=== PATIENT | female | born 1985 | race Caucasian/White ===

== ENCOUNTER 2019-01-22 09:13 | Outpatient (CLI) | payer OTHER ==
--- NOTE | 2019-01-22 12:58 | ULT ---
OB ULTRASOUND: HISTORY: Elderly in 2nd trimester. Evaluate size and dates. COMPARISON: None. TECHNIQUE: Sagittal and transverse imaging of a gravid uterus is performed. FINDINGS: Cervix is identified, measuring 6.0 cm. There are 2 intrauterine gestations. There appears to be a single placenta and a single amniotic sac , compatible with a monochorionic and monoamniotic . Amniotic fluid index is 15.7 cm. Twin A has heart tones with a rate of 150 b.p.m. Twin B has heart tones with a rate of 1 47 b.p.m. BIOMETRY: TWIN A: BPD 4.63 cm, 20 weeks 0 days Head circumference 17.70 cm, 20 weeks 2 days Abdominal circumference 14.79 cm, 20 weeks 1 day Femur length 3.38 cm, 20 weeks 5 days Average age by sonography is 20 weeks 2 days. Estimated weight is 344 gm. TWIN B: BPD 4.82 cm, 20 weeks 5 days Head circumference 18.40 cm, 20 weeks 6 days Abdominal circumference 16.45 cm, 21 weeks 4 day Femur length 3.38 cm, 20 weeks 5 days Average age by sonography is 21 weeks 0 days. Estimated weight is 395 gm. SURVEY: The following structures are adequately demonstrated. TWIN A: Lateral ventricle, cerebellum, bladder, cord insertion, 3-vessel cord, extremities, nose and lips. L imited evaluation of the 4-chamber heart, kidneys, stomach, and spine. TWIN B: Adequate demonstration of cerebellum, lateral ventricle, stomach, bladder, cord insertion, 3-vessel c ord, nose and lips. Limited evaluation of the 4-chamber heart, spine, extremities, and kidneys. IMPRESSION: 1. Monochorionic, monoamniotic twin gestation. heart tones in fetus A and B. 2. Average age by sonography of fetus A is 20 weeks 2 days. Average age by sonography of fetus B is 21 weeks 0 days. 3. survey as above. POS: [facility]
== END 2019-01-22 09:14 | disposition home or self-care (01) ==
LOC: BICULT 09:13
PROVIDERS: ATTEND Family Medicine
DX: O09.522 Supervision of elderly multigravida, second trimester (principal); Z3A.21 21 weeks gestation of pregnancy
CPT/HCPCS: 76810

== ENCOUNTER 2019-04-12 10:38 | Day surgery (SDC) | payer OTHER ==
[2019-04-12 12:31] VITALS: BMI 29.4
--- NOTE | 2019-04-12 12:34 | ULT ---
Obstetric sonogram twin Sonographic biophysical profile exam twin A Sonographic biophysical profile exam twin B Umbilical artery duplex exam twin A Umbilical artery duplex exam twin B HISTORY: Discordant twin size. FINDINGS: Twin A to the maternal right in breech presentation. Twin B in transverse presentation. Heart motion twin A 140 bpm. Heart motion twin B137 bpm. Grade 2 placenta is anterior. With each twin, good tone, breathing movements, and gross movements were demonstrated. Amniotic fluid index 13.3. Good color and spectral Doppler flow within each umbilical artery. Systolic/diastolic ratio associate d with twin A is 2.3-4.5. Associated with twin B is 2.4-3.2. With each twin, the measurements with elevated S/D ratios shows a significant decrease in the end-diastolic velocity. IMPRESSION: Twin intrauterine gestation. Sonographic biophysical profile score for each twin is 8/8. Systolic/diastolic ratios slightly increased, although ratio is affected by the decreased end diastol ic velocity values on the most extreme measurements.
--- NOTE | 2019-04-12 13:18 | PDOC.LDHP ---
Labor and Delivery H&P Chief complaint: other HPI: 34 y/o at 32w5d, patient of Dr. Todd, sent for BPP and umbilical artery dopplers. Denies VB, LOF, ctx or other complaints. +FM. ROS neg for HEENT, cv, pulm, gi, gu, neuro, psych, skin, musculoskeletal or constitutional symptoms other than mentioned above. OB History Details: 5 prior term SVDs Current complications: gestational diabetes, mono/di twins Past Medical History: None Current medications: pre-milena vitamins Previous surgical history: none Allergies/Adverse Reactions: Allergies Allergy/AdvReac Type Severity Reaction Status Date / Time No Known Drug Allergies Allergy Verified 10/10/15 04:32 Social history: none - Physical Exam Vital signs reviewed and normal: yes General: NAD, resting Lungs: nonlabored breathing Abdomen: gravid Extremeties: no edema FHT: category 1 [place] contractions every: none - Assessment 34 y/o at 32w5d with BPP 10/10, variable umbilical artery dopplers. Scheduled for MFM appointment on , Dr. Todd next week. - Plan -: D/c home with precautions. Advised to keep all appointments and MFM appointments.
--- NOTE | 2019-04-13 14:37 | ULT ---
Obstetric sonogram twin Sonographic biophysical profile exam twin A Sonographic biophysical profile exam twin B Umbilical artery duplex exam twin A Umbilical artery duplex exam twin B HISTORY: Discordant twin size. FINDINGS: Twin A to the maternal right in breech presentation. Twin B in transverse presentation. Heart motion twin A 140 bpm. Heart motion twin B137 bpm. Grade 2 placenta is anterior. With each twin, good tone, breathing movements, and gross movements were demonstrated. Amniotic fluid index 13.3. Good color and spectral Doppler flow within each umbilical artery. Systolic/diastolic ratio associate d with twin A is 2.3-4.5. Associated with twin B is 2.4-3.2. With each twin, the measurements with elevated S/D ratios shows a significant decrease in the end-diastolic velocity. IMPRESSION: Twin intrauterine gestation. Sonographic biophysical profile score for each twin is 8/8. Systolic/diastolic ratios slightly increased, although ratio is affected by the decreased end diastol ic velocity values on the most extreme measurements. Transcribed Date/Time: 04/13/2019 2:37 PM
== END 2019-04-12 13:20 | disposition home or self-care (01) ==
LOC: L&D/OP 10:38
PROVIDERS: ATTEND Family Medicine
DX: O30.033 Twin pregnancy, monochorionic/diamniotic, third trimester (principal); O24.419 Gestational diabetes mellitus in pregnancy, unspecified control; Z3A.32 32 weeks gestation of pregnancy
CPT/HCPCS: 76700; 76819; 99282

== ENCOUNTER 2019-05-03 13:47 | Day surgery (SDC) | payer MEDICAID ==
[2019-05-03 14:24] VITALS: BMI 35.7
[2019-05-03] MEDS ORDERED: hydrALAZINE 20 MG/ML VIAL SLOW IVP PRN (15:22)
--- NOTE | 2019-05-03 15:24 | PDOC.LDHP ---
Labor and Delivery H&P Chief complaint: other (Here for scheduled BPP per Dr Todd Indicaton: Twins at 35 weeks) HPI: Patient of Dr Todd, 34 yo at 35 weeks 5 days here for scheduled BPP per Dr Todd. No VB, no LOF, good FM x2. No fever, states good FM. Denies other issues. Review of Systems: Complete ROS performed and as per HPI Current gestational age (weeks): 35 (5 days) Due date: 06/02/19 Grav: 6 Para: 5 OB History Details: SVDs x 6 Current complications: other (Twins...no record here) Current medications: pre- vitamins Previous surgical history: none Allergies/Adverse Reactions: Allergies Allergy/AdvReac Type Severity Reaction Status Date / Time No Known Drug Allergies Allergy Verified 10/10/15 04:32 Social history: none - Physical Exam Vital signs reviewed and normal: yes (110/84 87 98.4) General: NAD Heart: RRR Lungs: CTAB Abdomen: gravid Extremeties: no edema FHT: category 1 (NST reactive x 2) [place] contractions every: no CTX - Assessment Twins at 35 weeks, here for scheduled BPP per Dr Todd - Plan Plan: other (NSTs reactive x2..disctinct FHTs x 2 noted; BPP 8 x 2...08/05 with NSTs. OK for continued outpatient care. No evidence of labor at this time.)
--- NOTE | 2019-05-03 15:44 | ULT ---
Exam: Twin ultrasound biophysical profile: Twin umbilical artery vascular duplex with color and spectral Doppler imaging: Twin A is in cephalic presentation. heart rate 139 bpm biophysical profile equals 8/8 Umbilical artery vascular duplex with color and spectral Doppler imaging: Proximal umbilical artery: Systolic/diastolic ratio equals 2.47 Mid umbilical artery: Systolic/diastolic ratio equals 2.45 Distal umbilical artery at placenta: Systolic/diastolic ratio equals 7.39 (elevated) Twin B breech presentation. heart rate 160 bpm biophysical profile equals 8/8 Umbilical artery vascular duplex with color and spectral Doppler imaging: Proximal umbilical artery: Systolic/diastolic ratio equals 2.26 Mid umbilical artery: Systolic/diastolic ratio equals 2.52 Distal umbilical artery near the placenta: Systolic/diastolic ratio equals 2.42 CODE T
== END 2019-05-03 16:06 | disposition home health service (06) ==
LOC: L&D/OP 13:47
PROVIDERS: ATTEND Family Medicine
DX: Z01.89 Encounter for other specified special examinations (principal); O32.1XX2 Maternal care for breech presentation, fetus 2; O30.003 Twin pregnancy, unspecified number of placenta and unspecified number of amniotic sacs, third trimester; Z3A.35 35 weeks gestation of pregnancy
CPT/HCPCS: 59025; 76700; 76819; 99282

== ENCOUNTER 2019-05-11 10:55 | Inpatient (IN) | payer MEDICAID, OTHER, SELFPAY ==
[2019-05-11] MEDS ORDERED: ePHEDrine 50 MG/ML VIAL ONE (11:08)
[2019-05-11] MEDS ORDERED: hydrALAZINE 20 MG/ML VIAL SLOW IVP PRN ×2 (11:17→18:06)
[2019-05-11] MEDS ORDERED: Bicitra 30 ML UDCUP PO SCH (11:17)
[2019-05-11] MEDS ORDERED: Ondansetron PF 4 MG/2 ML Vial IVP PRN ×3 (11:17→18:06)
[2019-05-11] MEDS ORDERED: Promethazine HCl 25 MG/ML VIAL IM PRN ×3 (11:17→18:06)
[2019-05-11] MEDS ORDERED: CEFAZOLIN 2 GM in Premix Bag 1 BAG IVPB SCH (11:17)
[2019-05-11] MEDS ORDERED: Azithromycin 500 MG in Sodium Chloride 0.9% 250 ML 250 ML IVPB SCH (11:17)
[2019-05-11 11:38] LABS: Hemoglobin 13.8 g/dL (12.0-16.0); Mean Corpuscular HGB CONC 34.7 g/dL (32.0-36.0); Mean Corpuscular Hemoglobin 31.4 pg (27.0-31.0); Mean Corpuscular Volume 90.4 fL (78.0-98.0); Mean Platelet Volume 9.3 fL (7.4-10.4); Platelet Count 169 thou/uL (130-400); Red Blood Cell (RBC) Count 4.39 mill/uL (4.20-5.40); White Blood Cell (WBC) Count 9.5 thou/uL (4.8-10.8)
[2019-05-11] MEDS: Lactated Ringer's 1,000 ML IV SCH ×2 (11:40→12:05)
[2019-05-11 12:04] VITALS: BMI 32.4
[2019-05-11] MEDS ORDERED: MORPHINE 5 MG/10 ML PF VIAL ONE (12:09)
[2019-05-11] MEDS ORDERED: ePHEDrine/0.9% NaCl/PF SYRINGE 50 mg/10 ml ONE (12:10)
[2019-05-11] MEDS ORDERED: Oxytocin 10 UNITS/ML VIAL ONE (12:10)
[2019-05-11] MEDS ORDERED: Methylergonovine 0.2 MG TAB ONE (12:14)
[2019-05-11] MEDS ORDERED: Methylergonovine 0.2 MG/ML VIAL ONE (12:14)
[2019-05-11] MEDS ORDERED: Misoprostol 200 MCG TAB ONE (12:14)
[2019-05-11] MEDS ORDERED: Carboprost 250 MCG/ML AMP ONE (12:15)
[2019-05-11 12:20] LABS: Syphilis Antibody Nonreactive (Nonreactive)
[2019-05-11 12:21] LABS: HBSAg Index 0.29 S/CO (0-0.99); Hep B Surf Ag Non-Reactive S/CO (NonReactive)
[2019-05-11] MEDS ORDERED: Meperidine HCl/PF 25 MG/ML VIAL SLOW IVP PRN (12:43)
[2019-05-11] MEDS ORDERED: L&D-Morphine 4 MG/ML VIAL SLOW IVP PRN (12:43)
[2019-05-11] MEDS ORDERED: diphenhydrAMINE 50 MG/ML VIAL IVP PRN (12:43)
[2019-05-11] MEDS ORDERED: Ketorolac Tromethamine 30 MG/ML VIAL IVP PRN (12:43)
[2019-05-11] MEDS ORDERED: Naloxone HCl 0.4 mg/ml Vial IV PRN (12:43)
[2019-05-11] MEDS ORDERED: Ondansetron HCl/PF 4 MG/2 ML Vial IVP PRN (12:43)
[2019-05-11] MEDS ORDERED: Naloxone HCl 0.4 mg/ml Vial IVP PRN ×2 (12:43)
[2019-05-11] MEDS ORDERED: Promethazine HCl 25 MG SUPP PR PRN (12:43)
[2019-05-11] MEDS ORDERED: HYDROmorphone 2 MG/ML VIAL SLOW IVP PRN (12:43)
[2019-05-11] MEDS ORDERED: Ketorolac Tromethamine 30 MG/ML VIAL IVP SCH (12:45)
[2019-05-11] MEDS ORDERED: Communication Order-Pharmacy FS SCH (12:45)
[2019-05-11] MEDS ORDERED: NS / Oxytocin 40 units/1000ml 1,000 ML ONE (14:36)
[2019-05-11] MEDS ORDERED: Meperidine HCl/PF 25 MG/ML VIAL ONE (14:38)
[2019-05-11] MEDS ORDERED: Ondansetron PF 4 MG/2 ML Vial ONE (14:52)
[2019-05-11] MEDS ORDERED: Promethazine HCl 25 MG/ML VIAL ONE (15:34)
[2019-05-11] MEDS ORDERED: Meperidine HCl/PF 25 MG/ML VIAL IM PRN (18:06)
[2019-05-11] MEDS ORDERED: Bisacodyl 10 MG SUPP PR PRN (18:06)
[2019-05-11] MEDS ORDERED: diphenhydrAMINE 25 MG CAP PO PRN (18:06)
[2019-05-11] MEDS ORDERED: NS / Oxytocin 40 units/1000ml 1,000 ML IV SCH (18:06)
[2019-05-11] MEDS ORDERED: Lanolin Ointment 7 GM TUBE TOP PRN (18:06)
[2019-05-12] MEDS: Lactated Ringer's 1,000 ML IV SCH (00:15)
[2019-05-12] MEDS: Ferrous Sulfate 325 MG TAB PO SCH ×2 (01:25→10:07)
[2019-05-12] MEDS: Docusate Calcium (SURFAK) 240 MG CAP PO SCH ×3 (01:25→20:58)
[2019-05-12] MEDS: Simethicone Chewable 80 MG TAB PO PRN ×2 (05:08→20:58)
[2019-05-12 05:55] LABS: Hemoglobin 10.9 g/dL (12.0-16.0); Mean Corpuscular HGB CONC 31.5 g/dL (32.0-36.0); Mean Corpuscular Hemoglobin 29.3 pg (27.0-31.0); Mean Corpuscular Volume 92.9 fL (78.0-98.0); Mean Platelet Volume 8.5 fL (7.4-10.4); Platelet Count 135 thou/uL (130-400); RBC Distribution Width 13.1 % (11.5-14.5); Red Blood Cell (RBC) Count 3.73 mill/uL (4.20-5.40); White Blood Cell (WBC) Count 10.3 thou/uL (4.8-10.8)
[2019-05-12] MEDS ORDERED: Adacel (T-DAP) 0.5 ML SYRINGE IM ONE (09:00)
[2019-05-12] MEDS: HYDROcodone/Acetaminophen 5/325 mg Tablet PO PRN ×2 (10:10→18:04)
[2019-05-12] MEDS: Prenatal Vitamin 1 TAB PO SCH (10:10)
[2019-05-12] MEDS: Ibuprofen 800 MG TAB PO SCH ×2 (13:34→20:58)
[2019-05-13] MEDS: HYDROcodone/Acetaminophen 5/325 mg Tablet PO PRN ×4 (00:16→18:36)
[2019-05-13] MEDS: Ferrous Sulfate 325 MG TAB PO SCH ×2 (02:48→10:15)
[2019-05-13] MEDS: Simethicone Chewable 80 MG TAB PO PRN (05:28)
[2019-05-13] MEDS: Ibuprofen 800 MG TAB PO SCH ×4 (05:28→21:34)
[2019-05-13] MEDS: Docusate Calcium (SURFAK) 240 MG CAP PO SCH ×2 (08:30→21:34)
[2019-05-13] MEDS: Prenatal Vitamin 1 TAB PO SCH (08:30)
[2019-05-14] MEDS: HYDROcodone/Acetaminophen 5/325 mg Tablet PO PRN ×4 (00:49→23:19)
--- NOTE | 2019-05-14 04:37 | DN ---
DATE OF PROCEDURE: 05/11/2019 RESIDENT: Franco Ren, PGY-3. PROCEDURE: Primary low-transverse for monochorionic diamniotic and dichorionic twins. PREOPERATIVE DIAGNOSES: 1. Term intrauterine twin . 2. monochorionic diamniotic and dichorionic twins. POSTOPERATIVE DIAGNOSES: 1. Term intrauterine twin . 2. monochorionic diamniotic and dichorionic twins. INDICATIONS: This patient is a 34-year-old, G6, P5 female at 36 and 6 weeks gestation who presented for primary scheduled due to concern for discordance and cord and growth in the twin infants. PROCEDURES IN DETAIL: After risks, benefits and alternatives explained to the patient, she gave informed consent. Preoperative antibiotics included cefazolin 2 g IV. The patient was taken to the operating room and spinal anesthesia was initiated, placed in supine position with the left tilt, and prepped and draped in usual sterile fashion. A Pfannenstiel incision was made with a scalpel and carried down to the level of the fascia, which was sharply nicked. The fascial cut was extended bilaterally with Reddy scissors. The inferior and superior edges of the cut fascia were elevated with Sophie clamps and underlying rectus muscles were sharply and bluntly dissected free. Recti were divided digitally and retracted manually. Peritoneum was entered bluntly and retracted manually. Nabil O retractor was placed. A low transverse score was made with the scalpel. The uterus was entered in the midline with the scalpel. Clear fluid was seen. Baby A girl was noted to be vertex, the hysterotomy was extended manually. was noted to be vertex and easily delivered by fundal pressure. Next Baby B girl was delivered. The baby was transverse initially, but then would become vertex after delivery of Baby A. Baby Girl B was easily delivered by fundal pressure. Mouth and nares were bulb suctioned. Cord clamped and cut, grossly normal female infants were handed to the waiting nurses. It was noted the cord of baby A was significantly smaller than the cord of baby B. Cord blood was obtained for both. Placenta was manually extracted, found to be intact with 2 three-vessel cords and would be sent off. The uterus was externalized. The endometrium was curetted with a dry lap. The uterus was closed with a running locking 0 Vicryl suture followed by a few figure of eight, 0 Vicryl sutures. Following this, hemostasis was noted. We also did another running nonlocking 0 Vicryl imbricating suture. Following this, hemostasis was noted. The abdomen was irrigated with saline and suctioned free of clots. The uterus is internalized and the hysterotomy was again noted to be hemostatic. The peritoneum was then closed with 3-0 chromic suture. Fascia was closed with a running nonlocking 1 PDS suture. The subcutaneous tissue was irrigated. The subcu tissue was approximated with interrupted 3-0 Vicryl sutures. The skin was approximated with meliton and a pressure dressing was placed. All counts were correct. The patient tolerated procedure well and was taken to the recovery room in stable condition. EBL was pending at the time of dictation. COMPLICATIONS: None. SPECIMENS: Cord blood for baby A and baby B sent to lab for blood type. FINDINGS: Grossly normal female baby A with Apgars of 7 and 9. Grossly normal female baby B had Apgars of 8 and 9 respectively. Grossly normal placenta with 2 three vessel cords. Again, baby B's cord was significantly larger than baby A's, was sent off. DRAINS: [place] to gravity, draining clear urine. Job ID: [id number] [facility]
[2019-05-14] MEDS: Ferrous Sulfate 325 MG TAB PO SCH ×3 (06:13→23:21)
[2019-05-14] MEDS: Ibuprofen 800 MG TAB PO SCH ×3 (06:37→23:15)
[2019-05-14] MEDS: Prenatal Vitamin 1 TAB PO SCH (09:19)
[2019-05-14] MEDS: Docusate Calcium (SURFAK) 240 MG CAP PO SCH ×2 (09:19→23:15)
[2019-05-15] MEDS: Ibuprofen 800 MG TAB PO SCH ×2 (05:14→14:37)
[2019-05-15] MEDS: Prenatal Vitamin 1 TAB PO SCH (09:46)
[2019-05-15] MEDS: Docusate Calcium (SURFAK) 240 MG CAP PO SCH (09:46)
[2019-05-15] MEDS: Ferrous Sulfate 325 MG TAB PO SCH (09:47)
[2019-05-15] MEDS: HYDROcodone/Acetaminophen 5/325 mg Tablet PO PRN ×2 (09:50→16:51)
[2019-05-15 11:58] VITALS: BP 95/52; TEMP 98
== END 2019-05-15 18:05 | disposition home or self-care (01) | DRG 788 ==
LOC: L&D-LIB 10:55 → 3SW 17:53
PROVIDERS: ADMIT Family Medicine; ATTEND Family Medicine
PROC: 10D00Z1 Extraction of Products of Conception, Low, Open Approach (ICD-10-PCS; principal; 2019-05-13)
DX: O30.033 Twin pregnancy, monochorionic/diamniotic, third trimester (principal); Z3A.36 36 weeks gestation of pregnancy; Z37.2 Twins, both liveborn; O24.420 Gestational diabetes mellitus in childbirth, diet controlled; O36.5930 Maternal care for other known or suspected poor fetal growth, third trimester, not applicable or unspecified
CPT/HCPCS: 36415; 51702; 85027; 86780; 86850; 86900; 86901; 87340; 88307; J0456; J0690; J1885; J2175; J2210; J2274; J2405; J2550; J2590; J3490; J7050